=== PATIENT | female | born 2000 | race Caucasian/White ===

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

== ENCOUNTER 2019-06-25 18:53 | Inpatient (IN) ==
[2019-06-25] MEDS ORDERED: AMPICILLIN INJ 2,000 MG in SODIUM CHLORIDE 0.9% 100 ML IV ONE (19:18)
[2019-06-25] MEDS ORDERED: ONDANSETRON 4 MG/2 ML VIAL IV PRN ×2 (19:20→23:19)
[2019-06-25] MEDS ORDERED: BUTORPHANOL 2 MG/ML VIAL IV PRN (19:20)
[2019-06-25] MEDS ORDERED: CITRIC ACID/SODIUM CITRATE 30 ML UDCUP ONE (19:20)
[2019-06-25] MEDS ORDERED: MEPERIDINE 50 MG/1 ML VIAL IV PRN (19:20)
[2019-06-25] MEDS ORDERED: FAMOTIDINE 20 MG/2 ML VIAL IV ONE (19:22)
[2019-06-25] MEDS ORDERED: NALOXONE 0.4 MG/ML VIAL IV PRN (19:23)
[2019-06-25] MEDS ORDERED: ePHEDrine 50 MG/ML AMP IV PRN (19:23)
[2019-06-25] MEDS ORDERED: CITRIC ACID/SODIUM CITRATE 30 ML UDCUP PO ONE (19:25)
[2019-06-25] MEDS ORDERED: fentaNYL 2 MCG/ROPIV 0.2% EPID 100 ML EPIDURAL SCH (19:30)
[2019-06-25] MEDS: LACTATED RINGERS 1,000 ML IV SCH ×2 (19:30→20:11)
[2019-06-25] MEDS ORDERED: OXYTOCIN/LR 20 UNIT/1,000 ML BAG IV SCH (19:30)
[2019-06-25 19:40] LABS: Basophils % 0.2 % (0.0-0.8); Eosinophils # 0.1 10*3/uL (0.0-0.87); Eosinophils % 0.9 % (0.00-10.9); Hemoglobin 11.4 GM/DL (12.0-16.0); Immature Granulocytes % 0.7 %; Lymphocytes # 1.6 10*3/uL (1.4-4.0); Lymphocytes % 11.6 % (21.3-54.2); Mean Corpuscular HGB Conc 33.5 GM/DL (32-36); Mean Corpuscular Volume 93.7 FL (87-102); Mean Platelet Volume 10.3 FL (9.6-12.0); Monocytes % 4.5 % (1.7-12.7); Neutrophils % 82.1 % (38.7-73.9); Platelet Count 285 T/CUMM (130-400); Red Blood Count 3.63 MC/CUMM (3.8-5.5); Red Cell Distribution Width 14.6 % (9.3-17.3)
[2019-06-25 19:55] LABS: Albumin 2.7 G/DL (3.4-5.0); Bilirubin,Total 0.6 MG/DL (0.2-1.0); Calcium 8.8 MG/DL (8.5-10.1); Osmolality,Calculated 269.1 MOS/KG (273-304)
[2019-06-25 21:10] LABS: Amorphous Crystals,Urine Occasional /HPF (Few); Apearance,Urine CLEAR (Clear); Bilirubin,Urine Negative (Negative); Blood, Urine Negative (Negative); Glucose,Urine (UA) Negative (Negative); Ketones,Urine Negative (Negative); Mucus,Urine Occasional /LPF (Occasional); Nitrite,Urine Negative (Negative); Protein,Urine Negative; RBC,Urine 1 /HPF (0-4); Squamous Epithelial Cell,Urine Occasional /HPF (0-10); Urine Color Yellow (Yellow); Urine Specific Gravity 1.013 (1.001-1.035); WBC,Urine 1 /HPF (0-6)
[2019-06-25] MEDS ORDERED: miSOPROStoL 200 MCG TABLET ONE (22:51)
[2019-06-25] MEDS ORDERED: TRANEXAMIC ACID 1,000 MG/10 ML VIAL ONE (22:51)
[2019-06-25] MEDS ORDERED: LIDOCAINE 1% 50 ML VIAL ONE (22:52)
[2019-06-25] MEDS ORDERED: METHYLERGONOVINE 0.2 MG/1 ML AMP ONE (22:52)
[2019-06-25] MEDS ORDERED: CARBOPROST TROMETHAMINE 250 MCG/ML AMP IM ONE (22:52)
[2019-06-25] MEDS: OXYTOCIN/LR 20 UNIT/1,000 ML BAG IV PRN (23:10)
[2019-06-25] MEDS ORDERED: BISACODYL 10 MG SUPP RECTAL PRN (23:19)
[2019-06-25] MEDS ORDERED: MAGNESIUM HYDROXIDE SUSP 30 ML UDCUP PO PRN (23:19)
[2019-06-25] MEDS ORDERED: BENZOCAINE/MENTHOL LOZENGE 18/BOX PO PRN (23:19)
[2019-06-25] MEDS ORDERED: IBUPROFEN 800 MG TABLET PO PRN (23:19)
[2019-06-25] MEDS ORDERED: ACETAMINOPHEN 325 MG TABLET PO PRN (23:19)
[2019-06-25] MEDS ORDERED: LACTATED RINGERS 1,000 ML IV SCH (23:30)
[2019-06-26] MEDS ORDERED: AMPICILLIN INJ 1,000 MG in SODIUM CHLORIDE 0.9% 100 ML IV SCH
[2019-06-26] MEDS: OXYTOCIN/LR 20 UNIT/1,000 ML BAG IV PRN (02:10)
[2019-06-26 05:49] LABS: Basophils # 0.1 10*3/uL (0.0-0.2); Basophils % 0.3 % (0.0-0.8); Eosinophils # 0.2 10*3/uL (0.0-0.87); Hematocrit 30.7 VOL% (35.7-47.0); Hemoglobin 10.6 GM/DL (12.0-16.0); Immature Granulocytes % 0.4 %; Immature Granulocytes Absolute 0.07 #; Lymphocytes # 1.9 10*3/uL (1.4-4.0); Lymphocytes % 12.4 % (21.3-54.2); Mean Corpuscular HGB Conc 34.5 GM/DL (32-36); Mean Corpuscular Volume 93.3 FL (87-102); Mean Platelet Volume 10.4 FL (9.6-12.0); Neutrophils % 79.9 % (38.7-73.9); Platelet Count 255 T/CUMM (130-400); Red Blood Count 3.29 MC/CUMM (3.8-5.5); Red Cell Distribution Width 14.6 % (9.3-17.3); White Blood Count 15.7 T/CUMM (4-12)
[2019-06-26] MEDS: DOCUSATE SODIUM 100 MG CAPSULE PO PRN ×2 (10:12→22:10)
[2019-06-27 08:10] VITALS: BP 117/75
== END 2019-06-27 14:15 | disposition home or self-care (01) | DRG 560 ==
LOC: N.LDOUT 18:53 → N.LD 18:56 → N.OB 06-26 06:53
PROVIDERS: ADMIT Specialist; ATTEND Specialist